=== PATIENT | male | born 1960 | race Caucasian/White ===

== ENCOUNTER 2018-05-20 15:48 | Emergency (ER) | payer SELFPAY ==
[2018-05-20] MEDS ORDERED: Acetaminophen 500 MG TAB ONE (16:53)
[2018-05-20] MEDS ORDERED: Ketorolac Tromethamine 30 MG/ML VIAL ONE (16:53)
[2018-05-20] MEDS ORDERED: Metoclopramide HCl 10 MG/2 ML VIAL ONE (16:53)
[2018-05-20] MEDS ORDERED: diphenhydrAMINE 50 MG/ML VIAL ONE (16:53)
--- NOTE | 2018-05-20 16:55 | CT ---
CT BRAIN WITHOUT CONTRAST 05/20/18 HISTORY: Severe headache. FINDINGS: No evidence of infarct, hemorrhage, midline shift, or abnormal extra-axial fluid collections seen. Th e ventricular size is normal and the basilar cisterns patent. Increased density in the vessels and si nuses is noted likely due to increased hematocrit. The bony calvarium is intact. There is mild mucosa l disease in the paranasal sinuses. Mastoid air cells are clear. IMPRESSION: No CT evidence of acute intracranial process. This study is interpreted in consultation with Dr. Keith Romero (neuroradiologist) who concurs. POS: OFF
[2018-05-20] MEDS ORDERED: methylPREDNISolone Sod Succ/PF 125 MG/2 ML VIAL ONE (17:36)
[2018-05-20] MEDS ORDERED: Magnesium 2 GM/50 ML BAG (IN WATER) ONE (19:06)
== END 2018-05-20 18:48 | disposition home or self-care (01) ==
LOC: ERS 15:48
DX: R51 Headache (principal); J45.909 Unspecified asthma, uncomplicated; I10 Essential (primary) hypertension; F41.9 Anxiety disorder, unspecified; F31.9 Bipolar disorder, unspecified; F42.9 Obsessive-compulsive disorder, unspecified; F17.210 Nicotine dependence, cigarettes, uncomplicated
CPT/HCPCS: 70450; 96365; 96367; 96375; J1200; J1885; J2765; J2930; J3475

== ENCOUNTER 2020-01-03 10:30 | Inpatient (IN) | payer OTHER, SELFPAY ==
[2020-01-03] MEDS ORDERED: Fentanyl 100 MCG/2 ML VIAL ONE ×2 (11:00→13:11)
[2020-01-03 11:18] LABS: #Basophils 0.1 thou/uL (0.0-0.2); #Eosinphils 0.1 thou/uL (0.0-0.7); #Lymphocytes 1.4 thou/uL (1.20-3.40); #Monocytes 0.5 thou/uL (0.11-0.59); #Neutrophils 4.1 thou/uL (1.40-6.50); %Basophils 1.1 % (0.0-1.0); %Eosinophils 2.1 % (0.0-10.0); %Lymphocytes 22.7 % (21.0-51.0); %Monocytes 8.2 % (0.0-10.0); %Neutrophils 65.9 % (42.0-75.0); Hemoglobin 16.7 g/dL (14.0-18.0); Mean Corpuscular HGB CONC 34.7 g/dL (32.0-36.0); Mean Corpuscular Hemoglobin 32.8 pg (27.0-31.0); Mean Corpuscular Volume 94.3 fL (78.0-98.0); Mean Platelet Volume 7.4 fL (7.4-10.4); Platelet Count 280 thou/uL (130-400); RBC Distribution Width 12.9 % (11.5-14.5); White Blood Cell (WBC) Count 6.2 thou/uL (4.8-10.8)
[2020-01-03 11:44] LABS: ALT (SGPT) 197 U/L (8-55); AST (SGOT) 136 U/L (5-34); Albumin 4.5 g/dL (3.4-4.8); Alkaline Phosphatase 60 U/L (40-110); Anion Gap 19 mmol/L (10-20); BUN (Urea Nitrogen) 7 mg/dL (8.4-25.7); Bilirubin, Total 0.4 mg/dL (0.2-1.2); Calc. Creatinine Clearance 0 mL/min (70-130); Calcium 8.8 mg/dL (7.8-10.44); Carbon Dioxide 23 mmol/L (23-31); Chloride 102 mmol/L (98-107); Estimated GFR-MDRD Greater than 90; Globulin 2.8 g/dL (2.4-3.5); Glucose 138 mg/dL (80-115); Lipase 126 U/L (8-78); Potassium 4.3 mmol/L (3.5-5.1); Protein, Total 7.3 g/dL (5.8-8.1); Sodium 140 mmol/L (136-145)
--- NOTE | 2020-01-03 13:43 | CT ---
CT ABDOMEN AND PELVIS WITH AND WITHOUT IV CONTRAST: Date: 12/24/2019 HISTORY: Lower right-sided back pain. FINDINGS: The lung bases are unremarkable. Liver demonstrates decreased attenuation compared to the spleen cons istent with fatty infiltration. No focal mass or abnormal biliary ductal dilatation is seen. No calci fied gallstones are noted. The spleen, pancreas, adrenal glands, and left kidney are normal. There is a 5 mm low density lesion in the left anterior renal cortex, too small to characterize, likely repre sents a small cyst. No calculi are seen in the kidneys, ureters, or the urinary bladder. No hydrouret eronephrosis is noted on either side. No free air, free fluid, or lymphadenopathy is noted in the abdomen or pelvis. A retroaortic left dior al vein is present. There is no evidence of aneurysmal dilatation of the abdominal aorta. The small bowel loops are not abnormally dilated. A normal appearing appendix is present. There is a small fat-containing left inguinal hernia. There are degenerative changes in the spine. No abnormally loculated fluid collection is seen to suggest abscess formation. IMPRESSION: No evidence of acute process. POS: AH
[2020-01-03 14:06] LABS: Lactic Acid 3.8 mmol/L (0.5-2.2)
[2020-01-03] MEDS ORDERED: Ondansetron ODT 4 MG TAB ONE (15:01)
[2020-01-03 15:33] LABS: Bilirubin Negative (Negative); Blood, Urine Negative (Negative); Clarity Clear (Clear); Glucose, Urine (Dipstick) Normal (Negative); Ketone, Urine 20 mg/dL (Negative); Leukocyte Negative Leu/uL (Negative); Nitrite Negative (Negative); Protein, Urine (Dipstick) 10 mg/dL (Neg-Trace); Urobilinogen Normal mg/dL (Less than 2)
[2020-01-03 15:35] LABS: Specific Gravity, Urine 1.049 (1.002-1.036)
[2020-01-03] MEDS ORDERED: cefTRIAXone\\ROCEPHIN 2 GM VIAL ONE (15:38)
[2020-01-03] MEDS ORDERED: Ketorolac Tromethamine 30 MG/ML VIAL ONE (17:08)
--- NOTE | 2020-01-03 17:08 | PDOC.HHP ---
Hospitalist HPI - History of Present Illness Flank pain History of Present Illness: Mr. Medellin is a 59-year-old male with a past medical history of bipolar disorder, alcohol abuse disorder, hypertension, seizure who presents for 3 weeks of worsening right flank pain. Patient reports that over the past 3 weeks he has been binge drinking increasing his daily 6 pack to a 12 pack. Patient does report a history of seizures although he reports it was not from alcohol withdrawal. Denies any prior hospitalizations for alcohol withdrawal. Patient reports that over the past few days his pain has acutely worsened and is associated with nausea, and p.o. intolerance. Patient reports that eating makes the pain worse, and that lying in the position makes the pain feel better. Patient denies any vomiting, diarrhea, constipation. He denies any hematochezia but does report a few episodes of melena a week ago which is new for him. Patient has had a colonoscopy approximately 1 year ago which was nor mal. He denies fever, chills, night sweats. Denies any numbness or paresthesias. Denies hematuria, dysuria, history of kidney stones. He denies any saddle anesthesia, IV drug use or urinary retention. In the emergency room initial vital signs 168/89, 85, 18, 98.6, 98% on room air. EKG with normal sinus rhythm, no ischemic changes. H/H 16.7/48.1, WBC 6.2, platelet count 280. BUNs/CR 7/0.82. Sodium 140, potassium 4.3. Glucose 138. Lactic acid 3.9, AST/ALT 136/197, alk phos 60, T bili 0.4. Lipase elevated at 126. UA positive for ketones but otherwise normal. CT abdomen pelvis with w ithout contrast showed no evidence of acute process. Patient received 3 L of IV fluid with repeat lactic acid 3.8. Patient also received 2 g of ceftriaxone, fentanyl, Toradol for pain. Hospitalist ROS - Review of Systems Constitutional: denies: fever, chills, sweats, weakness, malaise, other Eyes: denies: pain, vision change, conjunctivae inflammation, eyelid inflammation, redness, other ENT: denies: ear pain, ear discharge, nose pain, nose discharge, nose congestion, mouth pain, mouth swelling, throat pain, throat swelling, other Respiratory: denies: cough, dry, shortness of breath, hemoptysis, SOB with excertion, pleuritic pain, sputum, wheezing, other Cardiovascular: denies: chest pain, palpitations, orthopnea, paroxysmal noc. dyspnea, edema, light headedness, other Gastrointestinal: reports: nausea, abdominal pain (R flank pain). denies: vomiting, diarrhea, constipation, melena, hematochezia, other Genitourinary: denies: dysuria, frequency, incontinence, hematuria, retention, other Musculoskeletal: reports: back pain Skin: denies: rash, lesions, korey, bruising, other Neurological: denies: weakness, numbness, incoordination, change in speech, confusion, seizures, other - Medication Medications: Home medications include Latuda Paroxetine Buspirone Lisinopril Seroquel Patient reports allergy to codeine, Vicodin which he reports he feels hot and uncomfortable Hospitalist History - Past Medical History Other Medical History: Past medical history of Bipolar disorder Alcohol abuse Hypertension Seizure - Family History Family History: reports: no pertinent history - Social History Smoking Status: Current some day smoker Tobacco Type: cigarettes Alcohol: reports: Heavy Drugs: reports: marijuana Living Situation: With Family Activity level: independent ambulation - Exam General Appearance: NAD, awake alert Eye: PERRL, anicteric sclera ENT: normocephalic atraumatic, no oropharyngeal lesions, moist mucosa Neck: supple, symmetric, no JVD, no thyromegaly, no lymphadenopathy, no carotid bruit Heart: RRR, no murmur, no gallops, no rubs, normal peripheral pulses Respiratory: CTAB, no wheezes, no rales, no ronchi, normal chest expansion, no tachypnea, normal percussion Gastrointestinal: soft, non-tender, non-distended, normal bowel sounds, no palpable masses, no hepatomegaly, no splenomegaly, no bruit Gastrointestinal - other findings: mild R CVA tenderness Extremities: no cyanosis, no clubbing, no edema Skin: normal turgor, no lesions, no rashes Neurological: cranial nerve grossly intact, normal sensation to touch, no weakness, no focal deficits, no new deficit Musculoskeletal: normal tone, normal strength, no muscle wasting Psychiatric: normal affect, normal behavior, A&O x 3 Hospitalist Results - Labs Result Diagrams: 01/03/20 11:04 01/03/20 11:04 Lab results: WBC 6.2 thou/uL (4.8-10.8) 01/03/20 11:04 Hgb 16.7 g/dL (14.0-18.0) 01/03/20 11:04 Hct 48.1 % (42.0-52.0) 01/03/20 11:04 MCV 94.3 fL (78.0-98.0) 01/03/20 11:04 Plt Count 280 thou/uL (130-400) 01/03/20 11:04 Neutrophils % 65.9 % (42.0-75.0) 01/03/20 11:04 Sodium 140 mmol/L (136-145) 01/03/20 11:04 Potassium 4.3 mmol/L (3.5-5.1) 01/03/20 11:04 Chloride 102 mmol/L (98-107) 01/03/20 11:04 Carbon Dioxide 23 mmol/L (23-31) 01/03/20 11:04 BUN 7 mg/dL (8.4-25.7) L 01/03/20 11:04 Creatinine 0.82 mg/dL (0.7-1.3) 01/03/20 11:04 Glucose 138 mg/dL (80-115) H 01/03/20 11:04 Lactic Acid 3.8 mmol/L (0.5-2.2) H 01/03/20 13:42 Calcium 8.8 mg/dL (7.8-10.44) 01/03/20 11:04 Total Bilirubin 0.4 mg/dL (0.2-1.2) 01/03/20 11:04 AST 136 U/L (5-34) H 01/03/20 11:04 ALT 197 U/L (8-55) H 01/03/20 11:04 Alkaline Phosphatase 60 U/L (40-110) 01/03/20 11:04 Serum Total Protein 7.3 g/dL (5.8-8.1) 01/03/20 11:04 Albumin 4.5 g/dL (3.4-4.8) 01/03/20 11:04 Lipase 126 U/L (8-78) H 01/03/20 11:04 Urine Ketones 20 mg/dL (Negative) A 01/03/20 15:12 Urine Blood Negative (Negative) 01/03/20 15:12 Urine Nitrite Negative (Negative) 01/03/20 15:12 Ur Leukocyte Esterase Negative Luigi/uL (Negative) 01/03/20 15:12 Hospitalist H&P A/P - Plan Plan: R Flank Pain 59M hx of etoh abuse presents with 3 week onset of worsening R flank pain. Patient reports that over the past few days he has had worsening nausea and PO intolerance. Has not been eating much over the past few weeks as he has been binge drinking. Able to tolerate small sips of water, but not able to tolerate solid food. In ED CT abdomen pelvis with no acute pathology. No evidence of kidney stone, no evidence of UTI. No radiological evidence of pancreatitis. P atient afebrile with no leukocytosis. Lipase mildly elevated at 126. Given PO intolerance and elevated lipase question pancreatitis, although pain is localized to R flank. At this time etiology unknown, will obtain RUQUS to rule out stone not visible by CT scan. Plan -Clear liquid diet -Follow urine cx -IVF @ 150 cc/hr -RUQUS -Trend LFTs -Toradol, fentanyl for pain -Continue to monitor Elevated LTFs LFTs mildly elevated to 136/197. Alk phos 60. Will send for hepatitis panel and obtain RUQUS Plan -Hepatitis panel -RUQUS -Trend -PT/INR Lactic Acidosis Lactic acid elevated to 3.8 on admission. Patient received 3L of NS with repeat lactic acid of 3.9, now 4.9. Patient afebrile with no leukocytosis. Not meeting SIRS criteria. Patient did received 2g of ceftriaxone in ED. CT chest/abdomen/pelvis with no signs of infectious process. Unknown etiology, but suspect likely multifactorial including etoh abuse and starvation acidosis. Plan -IVF -Mg, Ca, Phos -Trend lactic acid -Trend fever curve, WBC -Blood cx Etoh abuse Hx of long-term etoh abuse. Pt reports he normally drinks a 6 pack of beer nightly. Reports that the past three weeks he has been binge drinking approximately twice that much of mostly beer. Patient denies history of prior withdrawal or admissions for withdrawal. Does report history of single siezure which he beleives might have been secondary to a large amount of chewing tobacco he accidental consumed. Reports that his brain scans were fine and has not had another event. Will place on ASE protocol. Last drink two days prior to admission. Plan -ASE protocol -Thiamine, Vitamin B12 -Mg, Folate -Will use ativan for ASE protocol Hypertension Hx of HTN. Will continue home lisinopril once dosage confirmed. Bipolar Disorder Hx of bipolar disorder on home latuda, paroxetine, seroquel, and buspirone. Pt currently denies SI/HI. Will continue home medications once dosages confirmed. DVT Prophylaxis: Lovenox FULL CODE Case discussed with attending physician, Dr. Ayala.
[2020-01-03 17:10] LABS: Lactic Acid 4.9 mmol/L (0.5-2.2)
[2020-01-03] MEDS ORDERED: Ondansetron ODT 4 MG TAB PO PRN (17:40)
[2020-01-03] MEDS ORDERED: Ondansetron PF 4 MG/2 ML Vial IVP PRN (17:40)
[2020-01-03 18:14] LABS: PTT 27.6 sec (22.9-36.1); Prothrombin Time 13.8 sec (12.0-14.7)
[2020-01-03 18:24] LABS: Calcium 7.9 mg/dL (7.8-10.44); Phosphorus 2.1 mg/dL (2.3-4.7)
[2020-01-03 18:47] LABS: HBCM Index 0.05 S/CO (0-0.79); HBSAg Index 0.17 S/CO (0-0.99); Hep A IgM AB Non-Reactive (NonReactive); Hep A IgM S/CO 0.11 S/CO (0-0.79); Hep B Surf Ag Non-Reactive S/CO (NonReactive); Hep C IgG Ab Non-Reactive (NonReactive); Hep C Index 0.04 S/CO (0-0.79); Hepatitis B Core IgM Abs Non-Reactive (NonReactive); Thyroid Stimulating Hormone 0.6086 uIU/mL (0.35-4.94)
[2020-01-03 19:56] VITALS: BMI 32.4
[2020-01-03] MEDS: Sodium Chloride 0.9% 1,000 ML IV SCH (20:09)
[2020-01-03] MEDS: Fentanyl 100 MCG/2 ML VIAL SLOW IVP PRN (21:21)
[2020-01-03] MEDS: Lorazepam 1 MG TAB PO PRN (21:21)
[2020-01-03 22:12] LABS: Lactic Acid 2.3 mmol/L (0.5-2.2)
[2020-01-04] MEDS: Sodium Chloride 0.9% 1,000 ML IV SCH ×2 (02:23→08:03)
[2020-01-04] MEDS: Lorazepam 1 MG TAB PO PRN (02:23)
[2020-01-04] MEDS: Fentanyl 100 MCG/2 ML VIAL SLOW IVP PRN ×3 (04:44→19:19)
[2020-01-04 05:04] LABS: Anion Gap 14 mmol/L (10-20); BUN (Urea Nitrogen) 9 mg/dL (8.4-25.7); Calc. Creatinine Clearance 136 mL/min (70-130); Calcium 7.4 mg/dL (7.8-10.44); Carbon Dioxide 23 mmol/L (23-31); Chloride 104 mmol/L (98-107); Estimated GFR-MDRD Greater than 90; Glucose 106 mg/dL (80-115); Potassium 3.7 mmol/L (3.5-5.1); Sodium 137 mmol/L (136-145)
[2020-01-04 05:55] LABS: Band 2 % (5-11); Hemoglobin 13.9 g/dL (14.0-18.0); MDiff Complete? YES; Mean Corpuscular HGB CONC 34.9 g/dL (32.0-36.0); Mean Corpuscular Hemoglobin 33.3 pg (27.0-31.0); Mean Corpuscular Volume 95.5 fL (78.0-98.0); Mean Platelet Volume 7.5 fL (7.4-10.4); Neutrophil 59 % (42-75); Platelet Count 224 thou/uL (130-400); RBC Distribution Width 12.5 % (11.5-14.5); Red Blood Cell (RBC) Count 4.18 mill/uL (4.70-6.10); White Blood Cell (WBC) Count 7.7 thou/uL (4.8-10.8)
[2020-01-04 05:56] LABS: Lymphocytes 24 % (21-51); Monocytes 14 % (0-10); Reactive Lymphocytes 1 % (0-10)
--- NOTE | 2020-01-04 07:38 | ULT ---
Ultrasound of [facility] upper quadrant: 01/04/2020 COMPARISON:None available HISTORY:Flank pain, abdominal pain, elevated liver function tests TECHNIQUE: Multiplanar grayscale sonographic imaging of [facility] upper quadrant FINDINGS:Hepatic parenchyma is echogenic, suggesting steatosis. Partially obscured pancreas grossly u nremarkable. No focal liver lesion. No gallstones or gallbladder wall thickening. Common bile that measures 3 mm, within normal limits. Right kidney measures 11.6 cm in craniocaudal d imension and demonstrates no stone, hydronephrosis, or mass. The occupational therapist reports a negative Aragon's sign. IMPRESSION:No acute findings.
[2020-01-04] MEDS ORDERED: Enoxaparin Sodium 40 MG/0.4 ML SYRINGE SC SCH (09:00)
[2020-01-04] MEDS ORDERED: FLU VACC QS2020-21(6MOS UP)/PF 60 MCG/0.5 ML SYRINGE IM ONE (09:00)
[2020-01-04 10:35] LABS: SARS-CoV-2 MS2 Positive; SARS-CoV-2 N Gene Negative; SARS-CoV-2 S Gene Negative; SARS-CoV-2 by NAA Not Detected (NotDetected); SARS-CoV-2 orf1ab Negative
[2020-01-04 10:51] LABS: Magnesium 1.4 mg/dL (1.6-2.6)
[2020-01-04] MEDS ORDERED: cloNIDine 0.1 MG TAB PO PRN (11:26)
[2020-01-04] MEDS ORDERED: Sodium Chloride 0.9% 1,000 ML IV SCH (11:28)
[2020-01-04] MEDS ORDERED: PARoxetine 20 MG TAB PO SCH (11:30)
[2020-01-04] MEDS ORDERED: busPIRone HCl 10 MG TAB PO SCH (11:30)
[2020-01-04] MEDS ORDERED: Magnesium Sulfate 4 GM in Sodium Chloride 0.9% 250 ML 250 ML IVPB SCH (11:30)
[2020-01-04] MEDS: Magnesium 2 GM/50 ML 2 GM in Premix Bag 1 BAG IVPB SCH ×2 (11:43→12:47)
[2020-01-04] MEDS: K-Phos Neutral 250 MG TAB PO SCH ×2 (11:43→16:24)
[2020-01-04] MEDS ORDERED: cloNIDine 0.1 MG TAB PO SCH (15:15)
--- NOTE | 2020-01-04 19:11 | PDOC.HOSPP ---
- Subjective Encounter Date: 01/04/20 Encounter Time: 16:30 Subjective: Patient seen and examined for right-sided flank pain with multiple electrolyte abnormalities. Pain is controlled with current pain regimen. Patient denies any nausea, vomiting or diarrhea. No chest pain or palpitations. - Objective Vital Signs & Weight: Vital Signs (12 hours) Temp Pulse Resp BP Pulse Ox 01/04/20 15:04 99.2 F 86 16 180/114 H 100 01/04/20 11:08 98.8 F 87 20 173/102 H 97 01/04/20 07:19 99.1 F 91 16 162/100 H 96 Weight Weight 207 lb 4.8 oz I&O: 01/03/20 01/04/20 01/05/20 06:59 06:59 06:59 Intake Total 1500 1960 Output Total 1000 1925 Balance 500 35 Result Diagrams: 01/05/20 04:11 01/05/20 04:11 Additional Labs: Accuchecks 01/03/20 23:52 POC Glucose 111 H Abnormal Lab Results - Last 48 hrs 01/03/20 11:04: BUN 7 L, AST 136 H, ALT 197 H, Lipase 126 H 01/03/20 11:04: MCH 32.8 H, Basophils % 1.1 H 01/03/20 11:04: Lactic Acid 3.9 H 01/03/20 13:42: Lactic Acid 3.8 H 01/03/20 15:12: Ur Specific Holcomb 1.049 H, Urine Ketones 20 A 01/03/20 16:39: Lactic Acid 4.9 H* 01/03/20 16:39: Magnesium 1.5 L 01/03/20 17:55: Phosphorus 2.1 L 01/03/20 21:46: Lactic Acid 2.3 H 01/04/20 04:08: Calcium 7.4 L 01/04/20 04:08: RBC 4.18 L, Hgb 13.9 L, Hct 39.9 L, MCH 33.3 H, Band Neuts % ( Manual) 2 L, Monocytes % (Manual) 14 H 01/04/20 04:09: Phosphorus 2.0 L, Magnesium 1.4 L Microbiology - Entire Visit 01/03/20 17:54 Venous blood - Left Hand Blood Culture - Preliminary Specimen has been received and culture in progress. No Growth to date. 01/03/20 17:49 Venous blood - Right Arm Blood Culture - Preliminary Specimen has been received and culture in progress. No Growth to date. Radiology Reviewed by me: Yes (CT abdomennegative for acute pathology) EKG Reviewed by me: Yes (Sinus rhythm on telemetry) Hospitalist ROS - Review of Systems Cardiovascular: denies: chest pain, palpitations, orthopnea, paroxysmal noc. dyspnea, edema, light headedness, other Genitourinary: denies: dysuria, frequency, incontinence, hematuria, retention, other - Medication Medications: Active Medications Generic Name Dose Route Start Last Admin Trade Name Freq PRN Reason Stop Dose Admin Fentanyl 25 mcg 01/03/20 17:56 01/04/20 09:58 Fentanyl 100 Mcg/2 Ml Vial SLOW IVP 25 mcg Q2H PRN Administration Severe Pain (7-10) Lorazepam 1 mg 01/03/20 17:39 01/04/20 02:23 Lorazepam 1 Mg Tab PO 1 mg Q4H PRN Administration ASE >=9 Phosphorus 500 mg 01/04/20 12:00 01/04/20 16:24 K-Phos Neutral 250 Mg Tab PO 500 mg TID-WM JOSE FRANCISCO Administration - Exam General - other findings: In mild distress due to right-sided pain Heart: RRR, no gallops, no rubs, normal peripheral pulses Respiratory: no wheezes, no rales, no ronchi, normal chest expansion Gastrointestinal: soft, normal bowel sounds, no guarding, no rigidity Gastrointestinal - other findings: Right-sided flank tendernessprobably musculoskeletal Neurological: no new deficit Psychiatric: normal affect, A&O x 3 Hosp A/P - Plan DVT proph w/SCDs Generalized weakness Right-sided flank painprobably musculoskeletal Chronic alcoholism with alcoholic hepatitis Lactic acidosis probably due to dehydration Hypertensionuncontrolled Bipolar disorder Hypokalemia/hypomagnesemia/hypophosphatemia Obesity with a BMI of 32.5 Plan: Pain controlled on current pain regimen. Right upper quadrant ultrasound negative for pathology. CT scan of the abdomen negative for acute pathology. The pain is probably musculoskeletal. Lactic acid improving. His magnesium today was 1.4 with a phosphorus of 2.0. Magnesium and phosphorus will be replaced. Patient is still in significant pain and is requiring IV fentanyl. Will wean off the pain medicine later today and probably discharge him in a.m. Patient was extensively counseled on alcohol cessation. Will add thiamine, folic acid and multivitamin. Control blood pressure with clonidine and metoprolol which will also help with the alcohol withdrawal. Restart home dose of lisinopril. Restart all other home medications including BuSpar, Paxil, S eroquel.
[2020-01-04] MEDS: busPIRone HCl 5 MG TAB PO SCH (20:32)
[2020-01-04] MEDS: cloNIDine 0.1 MG TAB PO SCH (20:33)
[2020-01-04] MEDS: Lisinopril 5 MG TAB PO SCH (20:33)
[2020-01-04] MEDS: Metoprolol Tartrate 25 MG TAB PO SCH (20:33)
[2020-01-05] MEDS: Fentanyl 100 MCG/2 ML VIAL SLOW IVP PRN ×3 (00:57→08:25)
[2020-01-05 05:02] LABS: #Basophils 0.1 thou/uL (0.0-0.2); #Eosinphils 0.3 thou/uL (0.0-0.7); #Lymphocytes 1.6 thou/uL (1.20-3.40); #Monocytes 0.9 thou/uL (0.11-0.59); #Neutrophils 3.6 thou/uL (1.40-6.50); %Basophils 0.9 % (0.0-1.0); %Eosinophils 4.3 % (0.0-10.0); %Lymphocytes 24.8 % (21.0-51.0); %Monocytes 14.5 % (0.0-10.0); %Neutrophils 55.5 % (42.0-75.0); Hemoglobin 13.5 g/dL (14.0-18.0); Mean Corpuscular HGB CONC 34.2 g/dL (32.0-36.0); Mean Corpuscular Hemoglobin 32.6 pg (27.0-31.0); Mean Corpuscular Volume 95.4 fL (78.0-98.0); Mean Platelet Volume 7.7 fL (7.4-10.4); Platelet Count 205 thou/uL (130-400); RBC Distribution Width 12.6 % (11.5-14.5); Red Blood Cell (RBC) Count 4.14 mill/uL (4.70-6.10); White Blood Cell (WBC) Count 6.4 thou/uL (4.8-10.8)
[2020-01-05 05:36] LABS: ALT (SGPT) 95 U/L (8-55); AST (SGOT) 62 U/L (5-34); Albumin 3.3 g/dL (3.4-4.8); Alkaline Phosphatase 42 U/L (40-110); Anion Gap 11 mmol/L (10-20); BUN (Urea Nitrogen) 6 mg/dL (8.4-25.7); Bilirubin, Total 0.7 mg/dL (0.2-1.2); Calc. Creatinine Clearance 138 mL/min (70-130); Calcium 7.6 mg/dL (7.8-10.44); Carbon Dioxide 24 mmol/L (23-31); Chloride 106 mmol/L (98-107); Estimated GFR-MDRD Greater than 90; Globulin 2.1 g/dL (2.4-3.5); Glucose 105 mg/dL (80-115); Magnesium 1.8 mg/dL (1.6-2.6); Phosphorus 2.3 mg/dL (2.3-4.7); Potassium 3.4 mmol/L (3.5-5.1); Protein, Total 5.4 g/dL (5.8-8.1); Sodium 138 mmol/L (136-145)
[2020-01-05] MEDS ORDERED: Potassium Chloride 20 MEQ TAB PO SCH (07:30)
[2020-01-05] MEDS ORDERED: Magnesium Sulfate 2 GM in Sodium Chloride 0.9% 100 ML IVPB SCH (07:30)
[2020-01-05] MEDS ORDERED: Magnesium 2 GM/50 ML 2 GM in Premix Bag 1 BAG IVPB SCH (07:45)
[2020-01-05] MEDS ORDERED: Cyclobenzaprine 10 MG TAB PO PRN (08:40)
[2020-01-05] MEDS ORDERED: Labetalol HCl 100 MG/20 ML VIAL SLOW IVP SCH (08:45)
[2020-01-05] MEDS ORDERED: Lorazepam 1 MG TAB PO SCH (08:45)
[2020-01-05] MEDS: K-Phos Neutral 250 MG TAB PO SCH ×2 (08:52→13:37)
[2020-01-05] MEDS: Lisinopril 5 MG TAB PO SCH (08:53)
[2020-01-05] MEDS: Metoprolol Tartrate 25 MG TAB PO SCH (08:53)
[2020-01-05] MEDS: cloNIDine 0.1 MG TAB PO SCH (08:53)
[2020-01-05] MEDS ORDERED: Multivit, Therapeutic 1 TAB PO SCH (09:00)
[2020-01-05] MEDS ORDERED: Thiamine 100 MG TAB PO SCH (09:00)
[2020-01-05] MEDS ORDERED: Folic Acid 1 MG TAB PO SCH (09:00)
[2020-01-05] MEDS ORDERED: PARoxetine 20 MG TAB PO SCH (09:00)
[2020-01-05] MEDS: busPIRone HCl 5 MG TAB PO SCH (09:05)
[2020-01-05 12:11] VITALS: BP 155/90; TEMP 98.8
[2020-01-05] MEDS ORDERED: Labetalol HCl 100 MG/20 ML VIAL SLOW IVP PRN (13:00)
--- NOTE | 2020-01-06 08:20 | PDOC.DS.DS ---
Provider - Provider Date of Admission: 01/03/20 18:30 Date of Discharge: 01/05/20 Admitting Provider: Siddhartha Ayala MD Consultations: None Primary Care Physician: SNOW PCP PROVIDER Course - Hospital Course Hospital Course: Patient is 59-year-old male who presented to the emergency room with intractable right-sided low back pain/flank pain that has been worsening over the last 2 weeks. Please refer to the history and physical by the physician clinical physician assistant for further details. The patient was admitted to the telemetry unit with a diagnosis of intractable right-sided flank pain with electrolyte abnormalities/lactic acidosis. His maximum lactic acid was 4.9. Right upper quadrant ultrasound was negative for acute findings. CT scan of the abdomen and pelvis with and without contrast was negative for acute findings. He was also diagnosed with mild alcoholic hepatitis that improved with IV hydration gradually improved. He was extensively counseled on alcohol cessation. His right flank pain is significantly improved with muscle relaxants. Fall precautions with 24-hour supervision was advised. Final diagnosis: Generalized weakness Right-sided flank painprobably musculoskeletal Chronic alcoholism with alcoholic hepatitis Lactic acidosis probably due to dehydration Hypertensionuncontrolled Bipolar disorder Hypokalemia/hypomagnesemia/hypophosphatemia Obesity with a BMI of 32.5 Resuscitation Status: 01/03/20 17:40 Resuscitation Status Routine Co-Sign Provider: Resuscitation Status: FULL: Full Resuscitation - Labs Lab Results: 01/05/20 04:11 01/05/20 04:11 Abnormal Lab Results - Last 48 hrs 01/04/20 04:09: Phosphorus 2.0 L, Magnesium 1.4 L 01/05/20 04:11: Potassium 3.4 L, BUN 6 L, Calcium 7.6 L, AST 62 H, ALT 95 H, Serum Total Protein 5.4 L, Albumin 3.3 L, Globulin 2.1 L 01/05/20 04:11: RBC 4.14 L, Hgb 13.5 L, Hct 39.5 L, MCH 32.6 H, Monocytes % 14.5 H, Monocytes # 0.9 H Microbiology - Entire Visit 01/03/20 17:54 Venous blood - Left Hand Blood Culture - Preliminary NO GROWTH AT 48 HOURS 01/03/20 17:49 Venous blood - Right Arm Blood Culture - Preliminary NO GROWTH AT 48 HOURS - Physical Exam Vitals: Weight Weight 207 lb 4.8 oz Physical Exam: The patient was seen and examined on the day of discharge. Plan - Discharge Medications Prescriptions: Cyclobenzaprine [Flexeril] 5 mg PO TID PRN #7 tab PRN Reason: Muscle Spasm Home Medications: Medication Instructions Recorded Confirmed Type Lurasidone HCl [Latuda] 20 mg PO HS 01/03/20 01/03/20 History PARoxetine HCl [Paxil] 20 mg PO DAILY 01/03/20 01/03/20 History PARoxetine HCl [Paxil] 40 mg PO DAILY 01/03/20 01/03/20 History QUEtiapine Fumarate [SEROquel] 25 mg PO HS 01/03/20 01/03/20 History busPIRone HCl [Buspirone HCl] 15 mg PO TID 01/03/20 01/03/20 History Lisinopril 10 mg PO DAILY 01/04/20 01/04/20 History Cyclobenzaprine [Flexeril] 5 mg PO TID PRN #7 tab 01/05/20 Rx Allergies: codeine Allergy (Verified 01/03/20 21:30) morphine Allergy (Verified 01/03/20 21:30) - Follow up Plan Referrals: [facility] [Outside] - 7 Days (call and establish with a primary care physician.) Disposition: HOME Quality - Care Measures CORE MEASURES:: N/A
== END 2020-01-05 14:10 | disposition home or self-care (01) | DRG 433 ==
LOC: ERS 10:30 → 2NO 18:30 → OBSVTOIN 01-04 17:09
PROVIDERS: ADMIT Student in an Organized Health Care Education/Training Program; ATTEND Internal Medicine
DX: K70.10 Alcoholic hepatitis without ascites (principal); E87.2 Acidosis; F10.20 Alcohol dependence, uncomplicated; E86.0 Dehydration; I10 Essential (primary) hypertension; F41.9 Anxiety disorder, unspecified; E78.6 Lipoprotein deficiency; E83.42 Hypomagnesemia; E83.39 Other disorders of phosphorus metabolism; E66.9 Obesity, unspecified; G40.909 Epilepsy, unspecified, not intractable, without status epilepticus; F17.210 Nicotine dependence, cigarettes, uncomplicated; Z20.828 Contact with and (suspected) exposure to other viral communicable diseases; F32.9 Major depressive disorder, single episode, unspecified; F42.9 Obsessive-compulsive disorder, unspecified; Z68.32 Body mass index [BMI] 32.0-32.9, adult; Z79.899 Other long term (current) drug therapy; Z88.5 Allergy status to narcotic agent
CPT/HCPCS: 36415; 36416; 51701; 74178; 76705; 80048; 80053; 80074; 81003; 83605; 83690; 83735; 84100; 84425; 84443; 85025; 85610; 85730; 87040; 87635; 90471; 90662; 93005; 96365; 96372; 96375; 96376; G0008; G0378; J0696; J1650; J1885; J3010; J3475; Q0162; U0003

== ENCOUNTER 2024-03-18 18:29 | Emergency (ER) | payer OTHER ==
[2024-03-18] MEDS ORDERED: Ketorolac Tromethamine 30 MG (1 mL) VIAL ONE (18:50)
[2024-03-18] MEDS ORDERED: Ondansetron PF 4 MG/2 ML Vial ONE (18:51)
[2024-03-18] MEDS ORDERED: diphenhydrAMINE 50 MG/ML VIAL ONE (18:51)
[2024-03-18 20:01] LABS: #Basophils 0.07 10x3/uL (0.0-0.2); %Eosinophils 1.2 % (0.0-10.0); %Lymphocytes 24.7 % (21.0-51.0); %Monocytes 13.6 % (0.0-10.0); %Neutrophils 59.1 % (42.0-75.0); Hematocrit 44.9 % (42.0-52.0); Hemoglobin 15.5 g/dL (14.0-18.0); Mean Corpuscular HGB CONC 34.5 g/dL (32.0-36.0); Mean Corpuscular Hemoglobin 31.4 pg (27.0-31.0); Mean Corpuscular Volume 91.1 fL (78.0-98.0); Mean Platelet Volume 9.1 fL (7.4-10.4); Platelet Count 238 10x3/uL (130-400); RBC Distribution Width 12.7 % (11.5-14.5); Red Blood Cell (RBC) Count 4.93 mill/uL (4.70-6.10)
[2024-03-18 20:18] LABS: ALT (SGPT) 38 U/L (8-55); AST (SGOT) 43 U/L (5-34); Albumin 4.1 g/dL (3.4-4.8); Alkaline Phosphatase 52 U/L (40-110); Anion Gap 18 mmol/L (10-20); BUN (Urea Nitrogen) 4 mg/dL (8.4-25.7); Bilirubin, Total 0.6 mg/dL (0.2-1.2); Calc. Creatinine Clearance 0 mL/min (70-130); Calcium 8.3 mg/dL (7.8-10.44); Carbon Dioxide 24 mmol/L (23-31); Chloride 99 mmol/L (98-107); Estimated GFR 104; Globulin 2.7 g/dL (2.4-3.5); Glucose 125 mg/dL (80-115); Protein, Total 6.8 g/dL (5.8-8.1); Sodium 137 mmol/L (136-145)
== END 2024-03-18 20:59 | disposition home or self-care (01) ==
LOC: ERS 18:29
DX: R51.9 Headache, unspecified (principal); I10 Essential (primary) hypertension; F17.220 Nicotine dependence, chewing tobacco, uncomplicated; F17.210 Nicotine dependence, cigarettes, uncomplicated
CPT/HCPCS: 36415; 70450; 80053; 85025; 96374; 96375; J1200; J1885; J2405

== ENCOUNTER 2024-04-15 07:59 | Emergency (ER) | payer SELFPAY ==
[2024-04-15] MEDS ORDERED: Boostrix 0.5 ML (Tdap) VIAL (>/=7 yrs of age) ONE (08:26)
[2024-04-15] MEDS ORDERED: Acetaminophen 500 MG TAB ONE (08:28)
== END 2024-04-15 10:00 | disposition home or self-care (01) ==
LOC: ERS 07:59
DX: S01.81XA Laceration without foreign body of other part of head, initial encounter (principal); F17.220 Nicotine dependence, chewing tobacco, uncomplicated; F17.210 Nicotine dependence, cigarettes, uncomplicated; I10 Essential (primary) hypertension; Z79.899 Other long term (current) drug therapy; W01.10XA Fall on same level from slipping, tripping and stumbling with subsequent striking against unspecified object, initial encounter; Y92.009 Unspecified place in unspecified non-institutional (private) residence as the place of occurrence of the external cause
CPT/HCPCS: 70450; 90471; 90715